=== PATIENT | female | born 1955 | race Caucasian/White ===

== ENCOUNTER → 2024-01-03 13:37 | Outpatient (REF) | payer MEDICARE, OTHER, SELFPAY | LOC: WDC 13:37 | PROVIDERS: ATTENDING PHYSICIAN Internal Medicine | DX: Z12.31 Encounter for screening mammogram for malignant neoplasm of breast (principal) | CPT/HCPCS: 77063; 77067 ==

== ENCOUNTER → 2024-07-30 06:24 | Day surgery (SDC) | payer MEDICARE, OTHER, SELFPAY | LOC: GI 06:24 | PROVIDERS: ATTENDING PHYSICIAN Internal Medicine Gastroenterology | DX: Z12.11 Encounter for screening for malignant neoplasm of colon (principal); D12.3 Benign neoplasm of transverse colon; K63.5 Polyp of colon; K57.30 Diverticulosis of large intestine without perforation or abscess without bleeding; K64.0 First degree hemorrhoids | CPT/HCPCS: 45385; 45380; 88305 ==

== ENCOUNTER → 2024-12-19 06:57 | Outpatient (REF) | payer MEDICARE, OTHER, SELFPAY ==
[2024-12-19 08:05] LABS: % Basophils 0.6 % (0-2); % Eosinophils 6.2 % (0-6); % Immature Granulocytes 0.4 % (0-0.5); % Lymphocytes 17.7 % (20.5-51.1); % Monocytes 9.3 % (1.7-9.3); % Neutrophils 65.8 % (42.2-75.2); Absolute Eosinophils 0.4 10^3/uL (0-0.7); Absolute Lymphocytes 1.3 10^3/uL (1.2-3.4); Absolute Monocytes 0.7 10^3/uL (0.1-0.6); Absolute Neutrophils 4.7 10^3/uL (1.4-6.5); Hematocrit 37.7 % (37.0-47.0); Mean Corp Hgb Conc. 31.8 g/dL (33.0-37.0); Mean Corpuscular Hgb 27.3 pg (27.0-31.0); Mean Corpuscular Volume 85.7 fL (81.0-99.0); Mean Platelet Volume 8.6 fL (7.4-10.4); Nucleated Red Blood Cells % 0 %; Platelet Count 331 10^3/uL (130-400); Red Cell Dist. Width 15.2 % (11.5-14.5); White Blood Cell Count 7.1 10^3/uL (4.8-10.8)
[2024-12-19 08:56] LABS: ALT (SGPT) 17 U/L (0-35); AST (SGOT) 28 U/L (14-36); Albumin 4.3 g/dl (3.5-5.0); Alkaline Phosphatase 67 U/L (38-126); Blood Urea Nitrogen 19 mg/dl (7-17); Calcium 9.4 mg/dl (8.4-10.2); Carbon Dioxide 27 mmol/L (22-30); Chloride 104 mmol/L (98-107); Glucose 86 mg/dl (70-99); HDL Cholesterol 56 mg/dl; LDL Cholesterol, Calculated 114 mg/dl; Potassium 4.1 mmol/L (3.5-5.1); Sodium 139 mmol/L (135-145); Total Bilirubin 0.8 mg/dl (0.2-1.3); Total Cholesterol 192 mg/dl (50-199); Total Protein 6.6 g/dl (6.3-8.2); Triglyceride 114 mg/dl (10-149); Very Low Density Lipoprotein 22 mg/dl (0-30); eGFR > 60.00
[2024-12-19 09:23] LABS: TSH Reflex To Free T4 1.21 uIU/ml (0.47-4.68)
== END ==
LOC: REG 06:57
PROVIDERS: ATTENDING PHYSICIAN Internal Medicine
DX: E78.00 Pure hypercholesterolemia, unspecified (principal); R79.89 Other specified abnormal findings of blood chemistry
CPT/HCPCS: 36415; 80053; 80061; 84443; 85025

== ENCOUNTER → 2025-06-14 08:31 | Outpatient (REF) | payer MEDICARE, OTHER, SELFPAY | LOC: HWRAD 08:31 | PROVIDERS: ATTENDING PHYSICIAN Obstetrics & Gynecology; FAMILY PHYSICIAN Internal Medicine | DX: Z78.0 Asymptomatic menopausal state (principal) | CPT/HCPCS: 77080 ==

== ENCOUNTER → 2025-07-31 14:32 | Outpatient (REF) | payer MEDICARE, OTHER, SELFPAY | LOC: RAD 14:32 | PROVIDERS: ATTENDING PHYSICIAN Internal Medicine Rheumatology; FAMILY PHYSICIAN Internal Medicine | DX: M81.0 Age-related osteoporosis without current pathological fracture (principal) | CPT/HCPCS: 72072; 72110 ==

== ENCOUNTER → 2025-08-01 06:25 | Outpatient (REF) | payer MEDICARE, OTHER, SELFPAY ==
[2025-08-01 08:14] LABS: ALT (SGPT) 24 U/L (0-35); AST (SGOT) 32 U/L (14-36); Albumin 4.4 g/dl (3.5-5.0); Alkaline Phosphatase 76 U/L (38-126); Blood Urea Nitrogen 23 mg/dl (7-17); Calcium 9.8 mg/dl (8.4-10.2); Carbon Dioxide 27 mmol/L (22-30); Chloride 107 mmol/L (98-107); Glucose 87 mg/dl (70-99); Potassium 4.2 mmol/L (3.5-5.1); Sodium 140 mmol/L (135-145); Total Protein 7.4 g/dl (6.3-8.2); eGFR > 60.00
[2025-08-01 08:17] LABS: Hematocrit 41.0 % (37.0-47.0); Hemoglobin 13.1 g/dL (12.0-16.0); Mean Corp Hgb Conc. 32.0 g/dL (33.0-37.0); Mean Corpuscular Volume 83.8 fL (81.0-99.0); Nucleated Red Blood Cells % 0 %; Platelet Count 402 10^3/uL (130-400); Red Cell Dist. Width 14.4 % (11.5-14.5)
[2025-08-01 08:30] LABS: Vitamin D, 25-OH*** 32.6 ng/mL (30-80)
== END ==
LOC: REG 06:25
PROVIDERS: ATTENDING PHYSICIAN Internal Medicine Rheumatology; FAMILY PHYSICIAN Internal Medicine
DX: E21.5 Disorder of parathyroid gland, unspecified (principal); E55.9 Vitamin D deficiency, unspecified
CPT/HCPCS: 36415; 80053; 82306; 83970; 85025